=== PATIENT | male | born 1975 | race Caucasian/White ===

== ENCOUNTER 2021-06-26 18:27 | Emergency (ER) | payer OTHER ==
[2021-06-27] MEDS ORDERED: NORCO 5-325 TA1 EACH PO (01:25)
[2021-06-27] MEDS ORDERED: CLEOCIN HCL150 MG PO (01:25)
[2021-06-27] MEDS ORDERED: PERCOCET 5-3251 EACH PO (01:58)
== END 2021-06-27 01:33 | disposition home or self-care (01) ==
LOC: FER 18:27
DX: K61.1 Rectal abscess (principal); L02.31 Cutaneous abscess of buttock; F17.210 Nicotine dependence, cigarettes, uncomplicated
CPT/HCPCS: 87070; 87205; 96372; J1885

== ENCOUNTER 2021-07-31 17:22 | Emergency (ER) | payer OTHER ==
[~2021-07-31] VITALS: Ht 185.4 cm; Wt 108.9 kg
[~2021-07-31 17:22] MED LIST: CLEOCIN HCL150 MG PO; NORCO 5-325 TA1 EACH PO; PERCOCET 5-3251 EACH PO
[2021-07-31 18:03] LABS: BASOPHIL 0.4 % (0-2); EOSINOPHIL 1.5 % (0-5); HCT 49.5 % (42.0-52.0); HGB 16.8 g/dl (13.2-18.0); LYMPHOCYTE 19.2 % (15-48); MCH 31.9 pg (25.0-31.0); MCHC 33.9 g/dL (32.0-36.0); MCV 94.1 fL (78.0-100.0); NEUTROPHIL 70.5 % (41-80); NRBC 0; PLT 265 K/uL (150-400); RBC 5.26 M/uL (4.70-6.00); RDW 13.8 % (11.5-14.0); WBC 16.3 K/uL (4.0-10.5)
[2021-07-31 18:13] LABS: BUN/CREAT RATIO (CALC) 19.2 RATIO; CREATININE 0.99 mg/dL (0.67-1.17); POTASSIUM 4.1 mmol/L (3.5-5.1)
[2021-07-31 18:24] LABS: CORONAVIRUS 2019 SARS-COV-2 NEGATIVE (NEGATIVE); INFLUENZA A NAA NEGATIVE (NEGATIVE)
[2021-07-31 18:51] LABS: LACTIC ACID 0.7 mmol/L (0.4-1.9)
[2021-07-31 19:54] LABS: BILIRUBIN NEGATIVE (NEGATIVE); BLOOD NEGATIVE Ery/uL (NEGATIVE); CLARITY CLEAR (CLEAR); COLOR YELLOW (YELLOW); GLUCOSE (U) NORMAL (NORMAL); LEUKOCYTES NEGATIVE Leu/uL (NEGATIVE); NITRITE NEGATIVE (NEGATIVE); PROTEIN NEGATIVE (NEGATIVE); UROBILINOGEN 0.2 mg/dL (0.2-1.0); pH 7.5 (5.0-9.0)
[2021-07-31 19:59] LABS: AMPHETAMINES NEGATIVE (NEGATIVE); BARBITURATES NEGATIVE (NEGATIVE); ECSTASY (MDMA) NEGATIVE (NEGATIVE); MARIJUANA (THC) NEGATIVE (NEGATIVE); METHADONE NEGATIVE (NEGATIVE); OPIATES NEGATIVE (NEGATIVE); OXYCODONE NEGATIVE (NEGATIVE)
== END 2021-07-31 20:15 | disposition home or self-care (01) ==
LOC: FER 17:22
PROVIDERS: Nurse Practitioner Family
DX: H61.23 Impacted cerumen, bilateral (principal); R42 Dizziness and giddiness; F17.210 Nicotine dependence, cigarettes, uncomplicated; Z20.822 Contact with and (suspected) exposure to COVID-19
CPT/HCPCS: 36415; 70450; 80048; 80305; 81003; 83605; 85025; 93005; J7030; U0002